=== PATIENT | male | born 2000 | race Caucasian/White ===

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

== ENCOUNTER 2018-08-31 17:16 | Emergency (ER) | payer OTHER ==
[~2018-08-31] VITALS: Ht 177.8 cm; Wt 135.2 kg
[2018-08-31 19:06] VITALS: BP 163/101; TEMP 98.1
== END 2018-08-31 19:06 | disposition home or self-care (01) ==
LOC: ED 17:16
PROC: 0H9GXZZ Drainage of Left Hand Skin, External Approach (ICD-10-PCS; principal; 2018-08-31)
DX: L03.012 Cellulitis of left finger (principal)
CPT/HCPCS: 99282

== ENCOUNTER 2019-06-30 07:50 | Outpatient (CLI) | payer OTHER | END 2019-06-30 19:22 | disposition home or self-care (01) | LOC: RESP 07:50 | DX: G40.409 Other generalized epilepsy and epileptic syndromes, not intractable, without status epilepticus (principal); F84.0 Autistic disorder ==

== ENCOUNTER 2021-01-14 10:44 | Emergency (ER) | payer OTHER ==
[~2021-01-14] VITALS: Ht 177.8 cm; Wt 136.1 kg
[2021-01-14 10:51] VITALS: TEMP 97.2
[2021-01-14 12:35] VITALS: BP 120/84
== END 2021-01-14 12:35 | disposition home or self-care (01) ==
LOC: ED 10:44
DX: U07.1 COVID-19 (principal); J06.9 Acute upper respiratory infection, unspecified
CPT/HCPCS: 96372; 99283; J1100